=== PATIENT | female | born 1990 | race Caucasian/White ===

== ENCOUNTER 2019-02-03 08:00 | Outpatient (CLI) | payer OTHER ==
[2019-02-03 18:54] LABS: BASOPHILS % (AUTO) 0.4 %; EOSINOPHILS # (AUTO) 0.1 10^3/uL (0.0-0.7); EOSINOPHILS % (AUTO) 1.1 %; HGB - HEMOGLOBIN 12.4 g/dL (12.0-16.0); LYMPHOCYTES # (AUTO) 2.9 10^3/uL (1.5-3.5); MEAN CORPUSCULAR HGB CONC 31.9 g/dL (32.0-36.0); MEAN CORPUSCULAR VOLUME 91.1 fL (81.0-99.0); MEAN PLATELET VOLUME 9.5 fL (7.9-10.8); MONOCYTES # (AUTO) 0.6 10^3/uL (0.0-1.0); MONOCYTES % (AUTO) 5.4 %; NEUTROPHILS # (AUTO) 6.7 10^3/uL (1.5-6.6); NEUTROPHILS % (AUTO) 64.6 %; PLT - PLATELET COUNT 242 10^3/uL (130-450); RED BLOOD COUNT 4.27 10^6/uL (4.20-5.40); RED CELL DISTRIBUTION WIDTH 13.2 % (12.0-15.0); WHITE BLOOD COUNT 10.4 x10^3/uL (4.8-10.8)
[2019-02-03 19:01] LABS: ALBUMIN 4.2 g/dL (3.2-5.5); ALBUMIN/GLOBULIN RATIO 1.1 (1.0-2.2); ALKALINE PHOSPHATASE 73 IU/L (42-121); ALT ALANINE AMINOTRANSFERASE < 10 IU/L (10-60); AST ASPARTATE AMINOTRANSFERASE 17 IU/L (10-42); BILIRUBIN,TOTAL 0.4 mg/dL (0.2-1.0); BUN - BLOOD UREA NITROGEN 8 mg/dL (6-20); CALCIUM 9.3 mg/dL (8.5-10.3); CARBON DIOXIDE - CO2 21 mmol/L (21-32); CHLORIDE 104 mmol/L (101-111); CREATININE 0.7 mg/dL (0.4-1.0); GFR - MDRD 101 (>89); GLUCOSE 107 mg/dL (70-100); SODIUM 138 mmol/L (135-145)
[2019-02-03 19:17] LABS: HB2 TOTAL 13.6 g/dL; HEMOGLOBIN A1C 0.49 g/dL; HEMOGLOBIN A1C % 5.4 % (4.6-6.2)
== END 2019-02-03 23:59 | disposition home or self-care (01) ==
LOC: LAB.WCP 08:00
PROVIDERS: ATTEND Physician Assistant
DX: Z00.00 Encounter for general adult medical examination without abnormal findings (principal)
CPT/HCPCS: 36415; 80053; 83036; 84443; 85025

== ENCOUNTER 2022-08-07 09:06 | Emergency (ER) | payer OTHER ==
--- NOTE | 2022-08-07 09:57 | ED Physician Documentation ---
PD HPI LOWER EXT INJURY - Stated complaint Stated Complaint: R ANKLE INJ - Chief complaint Chief Complaint: Trauma Ext - History obtained from History obtained from: Patient, Family - History of Present Illness PD HPI LOW EXT INJURY LOCATION: Right, Knee, Ankle Type of injury: Fall, Twist Where injury occurred: Other (roller [place]) Timing - onset: Last night Timing - duration: Hours Timing - details: Abrupt onset, Still present Improved by: Rest, Immobilization Worsened by: Moving, Palpating Associated symptoms: No: Weakness, Numbness, Tingling, Swelling Contributing factors: No: Anticoagulated Similar symptoms before: Has not had sx before Recently seen: Not recently seen - Additional information Additional information: Previously well Deja [place] when she twisted her knee fell and twisted her ankle. She heard a crunching noise when this oc curred. She is having some problem with pain in the lateral aspect of the ankle and some mild pain in the knee. Review of Systems Constitutional: denies: Fever Ears: denies: Ear pain Nose: denies: Congestion Throat: denies: Sore throat Respiratory: denies: Cough GI: denies: Vomiting, Diarrhea PD PAST MEDICAL HISTORY - Past Medical History Past Medical History: Yes Psych: ADD/ADHD - Past Surgical History Past Surgical History: Yes /DISTRIBUTION TECH: section - Present Medications Home Medications: Ambulatory Orders Medication Instructions Recorded Confirmed Lisdexamfetamine Dimesylate 60 mg PO DAILY 08/07/22 08/07/22 [Vyvanse] Vilazodone HCl [Viibryd] 40 mg PO DAILY 08/07/22 08/07/22 - Allergies Allergies/Adverse Reactions: Allergies Allergy/AdvReac Type Severity Reaction Status Date / Time No Known Drug Allergies Allergy Verified 08/07/22 09:13 - Social History Does the pt smoke?: No Smoking Status: Never smoker Does the pt drink ETOH?: No Does the pt have substance abuse?: No - Immunizations Immunizations are current?: Yes PD ED PE NORMAL - Vitals Vital signs reviewed: Yes (normal ) - General General: Alert and oriented X 3, No acute distress, Well developed/nourished - HEENT HEENT: Atraumatic, PERRL, EOMI - Respiratory Respiratory: No respiratory distress - Derm Derm: Normal color, Warm and dry, No rash - Extremities Extremities: No deformity, No edema, Other (point tenderness to the distal fibula on the right. No swelling, step off or crepitance noted. No tenderness to the proximal 5th. Knee exam normal ligaments. non-painful with normal ROM. ) - Neuro Neuro: Alert and oriented X 3, bus starter 2-12 intact, No motor deficit, No sensory deficit, Normal speech Eye Opening: Spontaneous Motor: Obeys Commands Verbal: Oriented GCS Score: 15 - Psych Psych: Normal mood, Normal affect Results - Vitals Vitals: Vital Signs - 24 hr 08/07/22 08/07/22 09:10 10:10 Temperature 36.7 C Heart Rate 91 89 Respiratory 16 16 Rate Blood Pressure 127/76 124/74 O2 Saturation 100 98 Oxygen O2 Source Room air - Rads (name of study) ankle Radiology: Prelim report reviewed (Impression: No acute radiographic abnormality. If there is high concern for occult injury, consider repeat radiograph or cross-sectional imaging.), EMP read indepedently, See rad report PD Medical Decision Making - ED course Complexity details: considered differential, d/w patient, d/w family Reviewed Lab Results: X-ray examination of the right ankle was performed without findings of fracture. ED course: 31-year-old female with a fall and ankle twist and knee twist. I examined the patient's knee and found her knee to be stable and without findings concerning for effusion or specific point tenderness. I examined the patient's foot found there to be no evidence of tenderness or deformity. She had no significant swelling. There is tenderness to the distal fibula laterally. No step-off or crepitance. X-ray is without evidence of a fracture. Patient is placed into a ankle stirrup. Departure - Departure Disposition: 01 Home, Self Care Clinical Impression: Ankle sprain Qualifiers: Encounter type: initial encounter Involved ligament of ankle: unspecified ligament Laterality: right Qualified Code(s): S93.401A - Sprain of unspecified ligament of right ankle, initial encounter Condition: Stable Instructions: ED Sprain Ankle W X Ray Follow-Up: SHANTANU Hurt [Provider Group] Comments: Deja, today looks like you have sprained your ankle in our expectation is a rapid recovery. I expect that he will probably be able to walk normally without the splint on in the next 3 to 4 days. Discharge Date/Time: 08/07/22 10:11
[2022-08-07 10:11] VITALS: BP 124/74
--- NOTE | 2022-08-07 10:13 | XRAY Report ---
PROCEDURE: Ankle 3 View RT INDICATIONS: fall R distal fib pain TECHNIQUE: 3 views of the ankle were acquired. COMPARISON: None FINDINGS: Bones: There is no displaced fracture. No dislocation. Soft tissues: No suspicious calcifications. IMPRESSION: No acute radiographic abnormality. If there is high concern for occult injury, consider repeat radiog chris or cross-sectional imaging. Reviewed by: Bay Curtis MD on 08/07/2022 10:12 AM [facility] [place] Approved by: Bay Curtis MD on 08/07/2022 10:12 AM [facility] [place] Station ID: [id number]
== END 2022-08-07 10:11 | disposition home or self-care (01) ==
LOC: ED 09:06
DX: S93.401A Sprain of unspecified ligament of right ankle, initial encounter (principal); X50.1XXA Overexertion from prolonged static or awkward postures, initial encounter; Y93.51 Activity, roller skating (inline) and skateboarding
CPT/HCPCS: 99283

== ENCOUNTER 2023-03-12 12:00 | Outpatient (CLI) | payer OTHER ==
--- NOTE | 2023-03-12 15:01 | XRAY Report ---
PROCEDURE: Lumbar Spine 2 View INDICATIONS: LOW BACK PAIN,UNSPECIFIED TECHNIQUE: 3 views of the lumbar spine were acquired. COMPARISON: None. FINDINGS: Bones: 5 [id number] vertebrae are present. There is normal bony alignment. No vertebral body compression fractures. No suspicious bony lesions. Mild disc height loss at L5-S1. Soft tissues: Overlying bowel gas pattern is normal. No suspicious soft tissue calcifications. IMPRESSION: Mild disc height loss at L5-S1. Reviewed by: Chuck Handy on 03/12/2023 2:59 PM PDT Approved by: Chuck Handy on 03/12/2023 2:59 PM PDT Station ID: [id number]
== END 2023-03-12 12:01 | disposition home or self-care (01) ==
LOC: DI 12:00
PROVIDERS: ATTEND Nurse Practitioner
DX: M51.37 Other intervertebral disc degeneration, lumbosacral region (principal)